=== PATIENT | female | born 1980 | race Caucasian/White ===

== ENCOUNTER 2020-08-05 16:14 | Observation (INO) | payer OTHER ==
[2020-08-05] VITALS (11 sets, daily range): BP systolic 107–142; BP diastolic 56–96; PULSE 78–97; TEMP 97.8–98.2
[~2020-08-05] VITALS: Ht 167.6 cm; Wt 90.4 kg
[~2020-08-05 16:14] MED LIST: MOTRIN 600600 MG/TAB; PRENATAL VITAMI1 TA5 PO; PRILOSEC 20MG20 MG PO; TYLENOL 325MG325 MG PO
--- NOTE | 2020-08-05 17:25 | NUR ---
PATIENT ADMITED INTO ROOM 330, DIRECT ADMIT WITH AN APPY. PATIENT C/O MILD RLQ ABD PAIN AT THIS TIME, DENIES NEED FOR PAIN MEDS. PATIENT SENT OVER FROM [place] [facility]. ADMITED WITH LEFT AC IV. HEAD TO TOE ASSESSMENT COMPLETE. PATIENT STATES SHE HASN'T ATE SINCE 729 AND LAST DRANK A LITTLE WATER AT 2PM WHEN SHE PASSED OUT IN THE [facility] OFFICE. AT BEDSIDE. PHYSICIAN NOTIFIED OF ARRIVAL.
[2020-08-05] MEDS ORDERED: CLARITIN 1010 MG/TAB PO (17:43)
--- NOTE | 2020-08-05 18:24 | NUR ---
OR AT BEDSIDE TO TAKE PATIENT DOWN TO SURGERY. CONSENT OBTAINED. URINE HCG TEST SENT TO LAB. PATIENT OFF FLOOR.
--- NOTE | 2020-08-05 18:54 | NUR ---
RECEIVED CHANGE OF SHIFT REPORT FROM DAY SHIFT NURSE. PATIENT ALREADY SENT TO SURGERY.
--- NOTE | 2020-08-05 20:04 | NUR ---
PATIENT TO ROOM VIA BED FROM PACU, IN ROOM. PATIENT WITH NO COMPLAINTS AT THIS TIME.
--- NOTE | 2020-08-05 20:10 | NUR ---
DENIES URGE TO VOID, DENIES PAIN AT THIS TIME. WAITING FOR GENERAL DIET FOOD TO ARRIVE.
--- NOTE | 2020-08-05 20:43 | NUR ---
Patient is at surgery, No 2000 vitals taken.
[2020-08-06 03:45] VITALS: BP 107/53; PULSE 73; TEMP 97.6
--- NOTE | 2020-08-06 07:37 | NUR ---
CHANGE OF SHIFT REPORT GIVEN TO DAY SHIFT NURSE, HOLLIS CASTILLO, A WINDSURFING INSTRUCTOR WAS ALSO PRESENT DURING REPORT.
[2020-08-06 08:09] VITALS: BP 114/62; PULSE 88; TEMP 98.2
--- NOTE | 2020-08-06 08:10 | NUR ---
MORNING SHIFT ASSESSMENT COMPLETED AT THIS TIME BY THIS NURSE AND SN NAKUL. PATIENT INDEPENDENT IN THE ROOM AND REPORTS PAIN WITH ACTIVITY THAT HAS BEEN WELL CONTROLLED WITH ALTERNATING TYLENOL AND IBUPROFEN. PATIENT DENIES ANY NEEDS AT THIS TIME.
[2020-08-06] MEDS ORDERED: ULTRAM 50MG TAB50 MG PO (08:52)
--- NOTE | 2020-08-06 09:44 | NUR ---
PATIENT GIVEN PRN PO TRAMADOL PRIOR TO DISCHARGE FOR RIDE HOME. DISCHARGE INSTRUCTIONS REVIEWED WITH PATIENT. QUESTIONS SOUGHT AND ANSWERED. PATIENT PERSONAL BELONGINGS GATHERED.
--- NOTE | 2020-08-06 09:57 | NUR ---
PATIENT TAKEN TO PERSONAL VEHICLE VIA WHEELCHAIR BY SURGICAL STAFF. PATIENT DISCHARGED.
== END 2020-08-06 09:57 | disposition home or self-care (01) ==
LOC: JCC 16:14
PROVIDERS: ADMIT Surgery
DX: K38.8 Other specified diseases of appendix (principal); N92.0 Excessive and frequent menstruation with regular cycle; Z79.899 Other long term (current) drug therapy
CPT/HCPCS: G0378; J0690; J1100; J1885; J2405; J2704; J2765; J3010